=== PATIENT | female | born 1995 | race Caucasian/White ===

== ENCOUNTER 2016-12-09 22:20 | Emergency (ER) | payer OTHER ==
[~2016-12-09] VITALS: Ht 157.5 cm; Wt 63.5 kg
[~2016-12-09 22:20] MED LIST: AMOXIL500 MG PO; ARIPIPRAZOLE2 MG PO; DEPO-PROVER150 MG/ML IM; PRENATAL1 TA2 PO; RISPERDAL0.5 M1 PO; RISPERIDONE0.5 M1 PO; VITAFOL OB PO
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
--- NOTE | 2016-12-09 23:12 | RADIOLOGY REPORT ---
EXAMINATION: XR KNEE, LEFT CLINICAL INFORMATION: Severe left knee pain and tenderness following fall. COMPARISON: None. TECHNIQUE: AP, lateral, bilateral oblique views of the left knee. FINDINGS: Bones and soft tissues appear unremarkable. No fracture or joint effusion is identified. Alignment is anatomic. Joint spaces are well maintained. No abnormal soft tissue calcification. IMPRESSION: No visible fracture or dislocation of the left knee. No significant joint effusion.
[2016-12-09] MEDS ORDERED: MOBIC15 M1 PO (23:25)
[2016-12-10 00:16] VITALS: BP 120/69
== END 2016-12-10 00:17 ==
LOC: ERH 22:20
DX: S83.92XA Sprain of unspecified site of left knee, initial encounter (principal); W10.9XXA Fall (on) (from) unspecified stairs and steps, initial encounter; Y93.9 Activity, unspecified; Y92.9 Unspecified place or not applicable
CPT/HCPCS: 73562-LT

== ENCOUNTER 2017-01-25 05:22 | Emergency (ER) | payer OTHER ==
[~2017-01-25 05:22] MED LIST changes: +MOBIC15 M1 PO
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
[2017-01-25 08:35] LABS: ABSOLUTE BASOPHIL COUNT 0 /CUMM (0.0-0.2); ABSOLUTE EOSINOPHIL COUNT 0 /CUMM (0.0-0.7); ABSOLUTE GRANULOCYTE CT 2.6 /CUMM (1.4-6.5); ABSOLUTE LYMPH COUNT 3.1 /CUMM (1.2-3.4); ABSOLUTE MONOCYTE COUNT 0.4 /CUMM (0.10-0.60); BASOPHIL % 0.5 % (0.0-2.0); EOSINOPHIL % 0.8 % (0-5); GRANULOCYTE % 41.8 % (42.2-75.2); HEMATOCRIT 43.3 % (37-47); MEAN CORPUSCULAR HGB 28.8 PG (27.0-31.0); MEAN CORPUSCULAR HGB CONC 33.1 G/DL (33.0-37.0); MEAN CORPUSCULAR VOLUME 86.9 FL (81.0-99.0); MEAN PLATELET VOLUME 7.9 FL (7.4-10.4); PLATELET COUNT 271 /CUMM (130-400); RBC DISTRIBUTION WIDTH 13.9 % (11.5-14.5); RED BLOOD CELL CT 4.98 /CUMM (4.20-5.40); WHITE BLOOD CELL COUNT 6.2 /CUMM (4.8-10.8)
[2017-01-25 09:01] VITALS: BP 126/84
== END 2017-01-25 09:31 ==
LOC: ERH 05:22
PROVIDERS: Emergency Medicine
DX: T76.11XA Adult physical abuse, suspected, initial encounter (principal); T76.21XA Adult sexual abuse, suspected, initial encounter
CPT/HCPCS: 81001; 81025; 87389; 87491; 87591; 96372; J0696

== ENCOUNTER 2017-11-29 03:54 | Emergency (ER) | payer OTHER ==
[~2017-11-29] VITALS: Ht 154.9 cm; Wt 70.3 kg
[2017-11-29 04:10] VITALS: BP 125/84
[2017-11-29] MEDS ORDERED: NORCO 5-325 TA1 EACH PO (04:30)
[2017-11-29] MEDS ORDERED: IBUPROFEN600 M1 PO (04:30)
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
== END 2017-11-29 04:40 ==
LOC: ERH 03:54
DX: T23.191A Burn of first degree of multiple sites of right wrist and hand, initial encounter (principal); X19.XXXA Contact with other heat and hot substances, initial encounter; Y92.9 Unspecified place or not applicable; Y93.9 Activity, unspecified